=== PATIENT | female | born 1935 | race African-American/Black ===

== ENCOUNTER 2017-04-11 21:25 | Inpatient (IN) | payer MEDICARE, MEDICAID ==
[~2017-04-11] VITALS: Ht 162.6 cm; Wt 60.3 kg
--- NOTE | 2017-04-11 22:00 | Emergency Room Report ---
History of Present Illness General Chief Complaint: Hypertension Source: Patient, Medical Record Present Illness HPI Is an 81-year-old female who has a history dementia. [facility]. Present with chief complaint of high blood pressure. It was systolic in the [facility] the jail. She was sent here because she also had a history of hernia. Patient denies any symptoms. History is limited because of her dementia. I got further history from her niece who came by the but later. Her knee said that on Wednesday patient has no complaint. Today she was complaining abdominal pain with vomiting. She noticed that the inguinal hernia was much bigger and hard. Allergies: Coded Allergies: No Known Allergies (Unverified , 04/11/17) Patient History Past Medical History: see triage record, old chart reviewed, HTN Past Surgical History: other Pertinent Family History: none Social History: Denies: drug use Now: No Immunizations: other Reviewed Nursing Documentation: PMH: Agreed, PSxH: Agreed Nursing Documentation-PMH Past Medical History: No History, Except For Hx Diabetes: Yes History Of Psychiatric Problem: Yes - dementia, alzheimers, anxiety, insomnia Hx Cerebrovascular Accident: Yes Review of Systems Eye: Denies: eye pain, blurred vision ENT: Denies: ear pain, nose congestion, throat swelling Respiratory: Denies: cough, shortness of breath Cardiovascular: Denies: chest pain, palpitations Gastrointestinal: Denies: abdominal pain, diarrhea, nausea, vomiting Musculoskeletal: Denies: back pain, joint pain Skin: Denies: rash Neurological: Denies: headache, numbness Endocrine: Denies: increased thirst, increased urine Hematologic/Lymphatic: Denies: easy bruising All Other Systems: negative except mentioned in HPI Physical Exam Vital Signs Date Time Temp Pulse Resp B/P (MAP) Pulse Ox O2 Delivery O2 Flow Rate FiO2 04/11/17 21:23 120 17 182/91 98 Room Air vitals with high blood pressure and tachycardia Sp02 EP Interpretation: reviewed, normal General Appearance: well appearing, no apparent distress, alert Head: normocephalic, atraumatic Eyes: bilateral eye PERRL, bilateral eye EOMI ENT: hearing grossly normal, normal pharynx Neck: full range of motion, supple, no meningismus Respiratory: chest non-tender, lungs clear, normal breath sounds Cardiovascular #1: regular rate, rhythm, no murmur Gastrointestinal: normal bowel sounds, no mass, no organomegaly, no bruit, non- distended, tenderness - diffuse tenderness. A large left internal hernia Musculoskeletal: back normal, gait/station normal, normal range of motion Psychiatric: mood/affect normal Skin: warm/dry Procedures Critical Care Time Critical Care Time Critical care is mandated in this patient who presented with small bowel obstruction secondary to incarcerated/strangulated inguinal hernia . Patient require my urgent intervention to attenuate the risks of metabolic collapse which may lead to cardiovascular collapse and . Critical care time is 35 minutes excluding any reportable procedure. Critical care time included evaluation, multiple reevaluation, looking at old charts, interpreting laboratory and diagnostic data, discussing case with patient and family and consultants, and charting. Additional Procedure Procedure Narrative Procedure: Manual reduction of incarcerated left inguinal hernia. Indication: Incarcerated inguinal hernia Description: With pressure over the hernia, I was able to reduce it without difficulty. Patient tolerated procedure without a problem. Medical Decision Making Diagnostic Impression: Primary Impression: SBO (small bowel obstruction) Additional Impressions: Inguinal hernia of left side with obstruction Leukocytosis Qualified Codes: D72.829 - Elevated white blood cell count, unspecified Dehydration Hypertension Qualified Codes: I10 - Essential (primary) hypertension ER Course Patient presents with abdominal pain secondary to small bowel she should come incarcerated hernia. Her white count is elevated and is worse him for possible strangulation. She felt much better now. Hernia reduced. Because of the white count and obstruction, will admit. I would not put an NG tube in this patient because her dementia. She is not cooperating. She would pull out the NG tube. The obstruction was from the incarcerated hernia. I was able to reduce the hernia. I contacted , surgeon. He agreed with the treatment plan. Will admit to Dr. Arias. Lab Results Impression labs with leukocytosis EKG Diagnostic Results EKG Time: 23:44 Rate: tachycardiac Rhythm: NSR, other - Left axis deviation Rhythm Strip Diag. Results Rhythm Strip Time: 23:44 EP Interpretation: yes Rate: 110 Rhythm: NSR, no PVC's CT/MRI/US Diagnostic Results CT/MRI/US Diagnostic Results : Imaging Test Ordered: CT abd and pelvis Impression Read by radiologist. CT ABDOMEN & PELVIS: SBO due to small incarcerated left inguinal hernia. No pneumatosis or free air. Mesenteric edema in the left lower abdomen, cannot exclude enteritis or early strangulation. Rectal fecal impaction. Colonic diverticulosis, no definite diverticulitis. Mild diffuse colonic thickening which may be underdistention versus colitis. No appendicitis. No hydronephrosis. Distended bladder. Last Vital Signs Date Time Temp Pulse Resp B/P (MAP) Pulse Ox O2 Delivery O2 Flow Rate FiO2 04/11/17 21:23 120 17 182/91 98 Room Air Status: improved Disposition: ADMITTED INPATIENT Condition: Serious NABOR PENNY M.D. Apr 11, 2017 22:00
[2017-04-11 22:16] VITALS: BP 163/97
[2017-04-11 22:22] LABS: MEAN CORPUSCULAR HEMOGLOBIN 28.8 PG (27.0-31.0); MEAN CORPUSCULAR HGB CONC 34.2 G/DL (32.0-36.0); MEAN CORPUSCULAR VOLUME 84 FL (80-99); MEAN PLATELET VOLUME 7.3 FL (6.5-10.1); PLATELET COUNT 166 K/UL (150-450); RED CELL DISTRIBUTION WIDTH 14.4 % (11.6-14.8)
[2017-04-11 22:26] LABS: WHITE BLOOD COUNT 28.6 K/UL (4.8-10.8)
[2017-04-11] MEDS ORDERED: LORazepam Inj 2mg/ml 1ml ONE (22:42)
[2017-04-11] MEDS ORDERED: LORazepam Inj 2mg/ml 1ml IV ONE (22:45)
[2017-04-11 22:59] LABS: APPEARANCE,URINE CLEAR; KETONES,URINE 2+ (NEGATIVE); LEUKOCYTE ESTERASE ,URINE NEGATIVE (NEGATIVE); NITRITE,URINE NEGATIVE (NEGATIVE); PH,URINE 5 (4.5-8.0); PROTEIN,URINE NEGATIVE (NEGATIVE); UROBILINOGEN,URINE NORMAL MG/DL (0.0-1.0)
[2017-04-11 23:04] LABS: BAND NEUTROPHILS % (MANUAL) 3 % (0-8); LYMPHOCYTES % (MANUAL) 2 % (20-45); NEUTROPHILS % (MANUAL) 95 % (45-75); TOTAL CELLS COUNTED 100
[2017-04-11 23:05] LABS: ANISOCYTOSIS 1+; BASOPHILS % (MANUAL) 0 % (0-2); EOSINOPHILS % (MANUAL) 0 % (0-3); PLATELET ESTIMATE DECREASED; PLATELET MORPHOLOGY NORMAL; POLYCHROMASIA 1+
[2017-04-11] MEDS ORDERED: Morphine Sulfate 4mg/ml Inj ONE (23:14)
[2017-04-11] MEDS ORDERED: Piperacillin/Tazobactam 3.375 GM in NS 110 ML IVPB ONE (23:15)
[2017-04-11] MEDS ORDERED: Morphine Sulfate 4mg/ml Inj IVP ONE (23:15)
[2017-04-11] MEDS ORDERED: Zosyn 3.375gm inj ONE (23:20)
[2017-04-11 23:32] LABS: PROTHROMBIN TIME 9.8 SEC (9.30-11.50)
[2017-04-11] MEDS ORDERED: ASPIRIN81 MG ORAL (23:53)
[2017-04-11] MEDS ORDERED: METOPROLOL SUCC25 MG ORAL (23:54)
[2017-04-11] MEDS ORDERED: ACETAMINOPHEN325 M1 ORAL (23:54)
[2017-04-11] MEDS ORDERED: LISINOPRIL5 MG ORAL (23:54)
[2017-04-11] MEDS ORDERED: GLIPIZIDE5 MG ORAL (23:54)
[2017-04-11] MEDS ORDERED: COLACE100 MG ORAL (23:54)
[2017-04-12] VITALS (7 sets, daily range): BP systolic 129–170; BP diastolic 76–97
[2017-04-12] MEDS ORDERED: Acetaminophen 500mg (ES) tab ORAL ONE
[2017-04-12 00:11] LABS: ALANINE AMINOTRANSFERASE 9 U/L (3-33); ALBUMIN/GLOBULIN RATIO 1.3 (1.0-2.7); ANION GAP 18 (5-15); ASPARTATE AMINO TRANSFERASE 12 U/L (5-40); CALCIUM 9.1 mg/dL (8.6-10.2); CARBON DIOXIDE 22 mEQ/L (20-30); CHLORIDE 101 mEQ/L (98-107); CREATININE 1.5 mg/dL (0.5-0.9); HEMOLYSIS 5; LIPASE 50 U/L (< 60); POTASSIUM 4.7 mEQ/L (3.4-4.9); SODIUM 141 mEQ/L (135-145); TOTAL PROTEIN 6.9 g/dL (6.6-8.7)
[2017-04-12] MEDS ORDERED: Morphine Sulfate 2mg/ml Inj IVP PRN (02:45)
[2017-04-12] MEDS ORDERED: Zosyn 3.375gm inj ONE (06:03)
[2017-04-12] MEDS: NovoLOG Insulin Flexpen SUBQ SCH ×4 (06:30→21:30)
[2017-04-12] MEDS: Piperacillin/Tazobactam 3.375 GM in D5W 110 ML IVPB SCH ×3 (06:37→21:57)
--- NOTE | 2017-04-12 08:55 | Diagnostic Imaging Report ---
Indication: Abdominal pain Technique: Continuous helical transaxial imaging of the abdomen and pelvis was obtained from the lung bases to the pubic symphysis. No intravenous contrast was administered. Coronal 2-D reformats were also obtained. Total Dose length Product (DLP): [address] Dose Index Volume (CTDIvol): 17 mGy Comparison: none Findings: There is a fairly large hernia that appears incarcerated and left lower quadrant abdomen containing small bowel. This dilatation of afferent limb of the small bowel isn't eating with small bowel obstruction. Please correlate clinically. The proximal small bowel leading up to the hernia is mildly dilated. There is probably no involvement of the colon but this is not definite. There is no colonic dilatation seen. Moderate fecal retention noted within the colon especially in the right which is distended by about 10 cm. There is no free air or pneumatosis. There is a moderate degree of mesenteric edema in the left lower quadrant at the base of the hernia and within the hernia. The appendix is normal. Arterial vascular calcifications are present. There is artifact limiting evaluation of the upper abdomen. Diverticula noted throughout the colon. The uterus is noted. There is an umbilical hernia containing fat. Mild basilar atelectasis noted. Bones are osteopenic. Impression: Small bowel incarceration within the hernia in the left inguinal region associated with small bowel obstruction. Moderate inflammation noted. Please correlate clinically. Is atherosclerotic disease. Severe fecal retention within the rectum. Umbilical hernia noted containing fat. Diverticulosis of the colon Artifacts. [facility] has communicated the preliminary results to the Emergency Department. Their findings are largely concordant with this report. The CT scanner at [facility] is accredited by the [employer] and the scans are performed using dose optimization techniques as appropriate to a performed exam including Automatic Exposure control.
[2017-04-12] MEDS: Metoprolol 25mg tab ORAL SCH ×3 (09:27→21:57)
--- NOTE | 2017-04-12 11:13 | Consultation ---
History of Present Illness General Date patient seen: Apr 12, 2017 Chief Complaint: Hypertension Present Illness HPI 81F with dementia current senior living resident who was noted to have worsening abdominal pain, emesis, and left inguinal hernia. Hernia reduced in ED and since well. Cannot obtain history from patient given mental status but history obtained from EMR. currently comfortable in hospital bed without complaints. Allergies: Coded Allergies: No Known Allergies (Unverified , 04/11/17) Medication History Scheduled Aspirin* (Aspirin*), 81 MG ORAL DAILY, (Reported) Docusate Sodium* (Colace*), 100 MG ORAL TWICE A DAY, (Reported) Glipizide* (Glipizide*), 5 MG ORAL BIDAC, (Reported) Lisinopril (Lisinopril*), 5 MG ORAL DAILY, (Reported) Metoprolol Succinate* (Metoprolol Succinate*), 25 MG ORAL DAILY, (Reported) Scheduled PRN Acetaminophen* (Acetaminophen 325MG Tablet*), 325 MG ORAL Q4H PRN for For Pain, (Reported) Patient History Limited by: medical condition Healthcare decision maker Resuscitation status Full Code Advanced Directive on File No Past Medical/Surgical History Past Medical/Surgical History: (1) Leukocytosis (2) Hypertension (3) Inguinal hernia of left side with obstruction (4) Dehydration (5) SBO (small bowel obstruction) (6) Incarcerated hernia Review of Systems ROS Narrative cannot obtain given patients medical condition Physical Exam General Appearance: no apparent distress Lines, tubes and drains: peripheral HEENT: PERRL Neck: normal inspection Respiratory/Chest: normal breath sounds, no respiratory distress, no accessory muscle use Cardiovascular/Chest: normal peripheral pulses, regularly irregular Abdomen: normal bowel sounds, non tender, soft, other - small umbilical hernia appreciated and reducible. no inguinal hernia noted at this time. Extremities: normal inspection Neurologic: responsive Last 24 Hour Vital Signs Date Time Temp Pulse Resp B/P (MAP) Pulse Ox O2 Delivery O2 Flow Rate FiO2 04/12/17 09:27 111 159/79 04/12/17 09:27 111 159/79 04/12/17 08:00 97.3 114 18 166/85 99 Room Air 04/12/17 04:00 121 04/12/17 02:17 98.1 133 20 170/94 95 Room Air 04/12/17 02:08 132 04/12/17 02:05 97.2 124 18 154/93 98 Room Air 04/12/17 01:09 97.2 124 18 154/93 98 Room Air 04/12/17 00:16 97.2 129 17 142/97 100 Room Air 04/11/17 23:36 98.4 04/11/17 22:16 98.4 120 17 163/97 98 Room Air 04/11/17 22:16 120 17 Room Air 04/11/17 21:23 120 17 182/91 98 Room Air Intake and Output 04/12/17 04/13/17 19:00 07:00 Intake Total 100 ml Balance 100 ml IV Total 100 ml Laboratory Tests Test 04/11/17 22:10 04/11/17 22:50 04/11/17 23:00 04/11/17 23:50 White Blood Count 28.6 K/UL (4.8-10.8) *H Red Blood Count 5.10 M/UL (4.20-5.40) Hemoglobin 14.7 G/DL (12.0-16.0) Hematocrit 43.0 % (37.0-47.0) Mean Corpuscular Volume 84 FL (80-99) Mean Corpuscular Hemoglobin 28.8 PG (27.0-31.0) Mean Corpuscular Hemoglobin Concent 34.2 G/DL (32.0-36.0) Red Cell Distribution Width 14.4 % (11.6-14.8) Platelet Count 166 K/UL (150-450) Mean Platelet Volume 7.3 FL (6.5-10.1) Neutrophils (%) (Auto) % (45.0-75.0) Lymphocytes (%) (Auto) % (20.0-45.0) Monocytes (%) (Auto) % (1.0-10.0) Eosinophils (%) (Auto) % (0.0-3.0) Basophils (%) (Auto) % (0.0-2.0) Differential Total Cells Counted 100 Neutrophils % (Manual) 95 % (45-75) H Lymphocytes % (Manual) 2 % (20-45) L Monocytes % (Manual) 0 % (1-10) L Eosinophils % (Manual) 0 % (0-3) Basophils % (Manual) 0 % (0-2) Band Neutrophils 3 % (0-8) Platelet Estimate Decreased L Platelet Morphology Normal Polychromasia 1+ Anisocytosis 1+ Urine Color Pale yellow Urine Appearance Clear Urine pH 5 (4.5-8.0) Urine Specific Hub[place] 1.010 (1.005-1.035) Urine Protein Negative (NEGATIVE) Urine Glucose (UA) Negative (NEGATIVE) Urine Ketones 2+ (NEGATIVE) H Urine Occult Blood Negative (NEGATIVE) Urine Nitrite Negative (NEGATIVE) Urine Bilirubin Negative (NEGATIVE) Urine Urobilinogen Normal MG/DL (0.0-1.0) Urine Leukocyte Esterase Negative (NEGATIVE) Prothrombin Time 9.8 SEC (9.30-11.50) Prothromb Time International Ratio 1.0 (0.9-1.1) Activated Partial Thromboplast Time 24 SEC (23-33) Sodium Level 141 mEQ/L (135-145) Potassium Level 4.7 mEQ/L (3.4-4.9) Chloride Level 101 mEQ/L (98-107) Carbon Dioxide Level 22 mEQ/L (20-30) Anion Gap 18 (5-15) H Blood Urea Nitrogen 32 mg/dL (7-23) H Creatinine 1.5 mg/dL (0.5-0.9) H Estimat Glomerular Filtration Rate mL/min (>60) Glucose Level 265 mg/dL (74-106) H Calcium Level 9.1 mg/dL (8.6-10.2) Total Bilirubin 0.3 mg/dL (0.0-1.2) Aspartate Amino Transf (AST/SGOT) 12 U/L (5-40) Alanine Aminotransferase (ALT/SGPT) 9 U/L (3-33) Alkaline Phosphatase 65 U/L (35-104) Total Protein 6.9 g/dL (6.6-8.7) Albumin 3.9 g/dL (3.5-5.2) Globulin 3.0 g/dL Albumin/Globulin Ratio 1.3 (1.0-2.7) Lipase 50 U/L (< 60) Height (Feet): 5 Height (Inches): 4.00 Weight (Pounds): 133 Medications Current Medications Medications (Trade) Dose Ordered Sig/Lan Route PRN Reason Start Time Stop Time Status Last Admin Dose Admin Amlodipine Besylate (Norvasc) 5 mg DAILY ORAL 04/12/17 09:00 05/12/17 08:59 04/12/17 09:27 Dextrose (Dextrose 50%) STAT PRN IV Hypoglycemia 04/12/17 02:45 05/12/17 02:44 Heparin Sodium (Porcine) (Heparin 5000 units/ml) 5,000 units EVERY 12 HOURS SUBQ 04/12/17 21:00 05/12/17 20:59 Insulin Aspart (NovoLOG) BEFORE MEALS AND HS SUBQ 04/12/17 06:30 05/12/17 06:29 Metoprolol Tartrate (Lopressor) 25 mg Q12HR ORAL 04/12/17 09:00 05/12/17 08:59 04/12/17 09:27 Morphine Sulfate (Morphine Sulfate) 2 mg Q4H PRN IVP For Pain 04/12/17 02:45 04/19/17 02:44 Piperacillin Sod/ Tazobactam Sod 3.375 gm/Dextrose 110 ml @ 27.5 mls/hr EVERY 8 HOURS IVPB 04/12/17 06:00 04/17/17 05:59 04/12/17 06:37 Sodium Chloride 1,000 ml @ 100 mls/hr Q10H IV 04/12/17 02:45 05/12/17 02:44 04/12/17 03:30 Assessment/Plan Problem List: (1) Inguinal hernia of left side with obstruction Assessment & Plan: 81F with left inguinal hernia which was reduced. doing well currently. leukocytosis and labs reviewed. no acute surgical intervention planned given hernia reduced and obstruction resolved. keep NPO with IV fluids for now will need to monitor exam and labs for 24hrs to ensure bowel viability since reduction ICD Codes: K40.30 - Unilateral inguinal hernia, with obstruction, without gangrene, not specified as recurrent SNOMED: 873992591, 835280790 Status: stable Lico Hammer Apr 12, 2017 11:13
--- NOTE | 2017-04-12 12:25 | Diagnostic Imaging Report ---
Indication: Abdominal pain Comparison: None Single view of the abdomen obtained Findings: Bowel gas pattern is nonspecific. No mass, ectopic calcifications, or abnormal gas collections are identified. The bones are unremarkable. There is moderate fecal retention in the distended rectal vault. Lau catheter is noted. Impression: Rectal distention due to feces Lau catheter
[2017-04-12 13:30] LABS: MEAN CORPUSCULAR HEMOGLOBIN 27.1 PG (27.0-31.0); MEAN CORPUSCULAR HGB CONC 31.7 G/DL (32.0-36.0); MEAN CORPUSCULAR VOLUME 85 FL (80-99); MEAN PLATELET VOLUME 8.9 FL (6.5-10.1); PLATELET COUNT 123 K/UL (150-450); RED BLOOD COUNT 5.05 M/UL (4.20-5.40); WHITE BLOOD COUNT 16.8 K/UL (4.8-10.8)
[2017-04-12 13:47] LABS: ANISOCYTOSIS 1+; BAND NEUTROPHILS % (MANUAL) 2 % (0-8); BASOPHILS % (MANUAL) 0 % (0-2); EOSINOPHILS % (MANUAL) 0 % (0-3); LYMPHOCYTES % (MANUAL) 8 % (20-45); NEUTROPHILS % (MANUAL) 85 % (45-75); PLATELET CLUMPS 1+; PLATELET ESTIMATE ADEQUATE; TOTAL CELLS COUNTED 100
[2017-04-12 13:49] LABS: ALANINE AMINOTRANSFERASE 8 U/L (3-33); ALBUMIN/GLOBULIN RATIO 1.2 (1.0-2.7); ANION GAP 14 (5-15); ASPARTATE AMINO TRANSFERASE 14 U/L (5-40); CALCIUM 8.6 mg/dL (8.6-10.2); CARBON DIOXIDE 20 mEQ/L (20-30); CHLORIDE 105 mEQ/L (98-107); CREATININE 1.4 mg/dL (0.5-0.9); HEMOLYSIS 27; POTASSIUM 5.3 mEQ/L (3.4-4.9); SODIUM 139 mEQ/L (135-145); TOTAL PROTEIN 6.6 g/dL (6.6-8.7)
[2017-04-12] MEDS: Sodium Polystyrene Sulfonate 15gm Powder ORAL ONE ×3 (15:12→21:30)
--- NOTE | 2017-04-12 19:40 | Cardiology Report ---
APPROVED REPORT EKG Measurement Heart [id number] ME [id number] [id number] Sinus tachycardia Left axis deviation Low voltage QRS Inferior infarct, age undetermined Cannot rule out Anteroseptal infarct, age undetermined Abnormal ECG
[2017-04-12] MEDS: Heparin 5000 units/ml inj SUBQ SCH ×2 (21:30→21:59)
[2017-04-13] VITALS (7 sets, daily range): BP systolic 133–161; BP diastolic 65–80
--- NOTE | 2017-04-13 00:45 | History and Physical Report ---
DATE OF ADMISSION: 04/12/2017 CHIEF COMPLAINT: Small bowel obstruction secondary to incarcerated left inguinal hernia. HISTORY OF PRESENT ILLNESS: The patient is an 81-year-old female. She has a prior history of hypertensive heart disease, stroke, diabetes, dementia, and anemia who presented with complaints of abdominal pain. She was noted to have a small-bowel obstruction on CAT scan secondary to a left inguinal hernia. This was reduced by the ER. Immediately afterwards, her symptoms improved. She is now admitted for further evaluation and care. She is confused at baseline, so unable to provide any history. PAST MEDICAL HISTORY: As above. PAST SURGICAL HISTORY: Unknown. CURRENT MEDICATIONS: Reconciled and reviewed. ALLERGIES: None. SOCIAL HISTORY: There is no known history of tobacco, ethanol, or drugs. FAMILY HISTORY: Unknown. REVIEW OF SYSTEMS: From the patient is unobtainable as the patient is minimally verbal. PHYSICAL EXAMINATION: VITAL SIGNS: Temperature 98 degrees, pulse 133, respirations 20, and blood pressure 170/94. GENERAL: The patient is a well-developed female, in no apparent distress. She is arousable and follows some simple commands. NECK: Supple. There is no jugular venous distention. HEART: Regular rate and rhythm. LUNGS: Clear. ABDOMEN: Soft, nontender, and nondistended. There is no inguinal hernia noted. EXTREMITIES: Without clubbing or cyanosis. LABORATORY DATA: Sodium 141, potassium 4.7, and creatinine was 1.5. White count was 28,000 and hemoglobin 14. Urine was clear. ASSESSMENT: This is a pleasant female, admitted with complaints of sepsis secondary to small bowel obstruction secondary to incarcerated hernia that has now been reduced. The patient's symptoms have immediately improved. PLAN: 1. Surgical evaluation. 2. IV hydration. 3. Repeat KUB. 4. Consider starting clears. 5. Broad-spectrum IV antibiotic therapy. 6. Resume antihypertensive regimen. 7. We will resume oral diabetic regimen once the patient is back eating. Mak Arias M.D. DR: KIEL JOB#: [id number] CC:
[2017-04-13] MEDS: Piperacillin/Tazobactam 3.375 GM in D5W 110 ML IVPB SCH ×3 (06:11→21:32)
[2017-04-13] MEDS: NovoLOG Insulin Flexpen SUBQ SCH ×4 (06:22→21:29)
[2017-04-13 06:37] LABS: BASOPHILS % (AUTO) 0.3 % (0.0-2.0); EOSINOPHILS % (AUTO) 0.5 % (0.0-3.0); LYMPHOCYTES % (AUTO) 13.9 % (20.0-45.0); MEAN CORPUSCULAR HEMOGLOBIN 28.4 PG (27.0-31.0); MEAN CORPUSCULAR HGB CONC 33.2 G/DL (32.0-36.0); MEAN CORPUSCULAR VOLUME 86 FL (80-99); MEAN PLATELET VOLUME 7.2 FL (6.5-10.1); MONOCYTES % (AUTO) 11.6 % (1.0-10.0); NEUTROPHILS % (AUTO) 73.6 % (45.0-75.0); PLATELET COUNT 135 K/UL (150-450); RED BLOOD COUNT 4.03 M/UL (4.20-5.40); RED CELL DISTRIBUTION WIDTH 13.9 % (11.6-14.8); WHITE BLOOD COUNT 9.8 K/UL (4.8-10.8)
--- NOTE | 2017-04-13 07:12 | General Progress Note ---
Assessment/Plan Problem List: (1) Leukocytosis ICD Codes: D72.829 - Elevated white blood cell count, unspecified SNOMED: 815061119, 784294933 Qualifiers: Qualified Codes: D72.829 - Elevated white blood cell count, unspecified (2) Hypertension ICD Codes: I10 - Essential (primary) hypertension SNOMED: 37297012, 399030506 Qualifiers: Qualified Codes: I10 - Essential (primary) hypertension (3) Inguinal hernia of left side with obstruction ICD Codes: K40.30 - Unilateral inguinal hernia, with obstruction, without gangrene, not specified as recurrent SNOMED: 042329337, 337172789 (4) SBO (small bowel obstruction) ICD Codes: K56.69 - Other intestinal obstruction SNOMED: 231019057, 925986595 (5) Dehydration ICD Codes: E86.0 - Dehydration SNOMED: 40218696, 359832689 Status: stable Assessment/Plan clears iv abx ivf surgery follow up. Subjective ROS Limited/Unobtainable: No Constitutional: Reports: malaise, weakness HEENT: Reports: no symptoms Cardiovascular: Reports: no symptoms Respiratory: Reports: no symptoms Gastrointestinal/Abdominal: Reports: no symptoms Genitourinary: Reports: no symptoms Neurologic/Psychiatric: Reports: pre-existing deficit Endocrine: Reports: no symptoms Hematologic/Lymphatic: Reports: no symptoms Allergies: Coded Allergies: No Known Allergies (Unverified , 04/11/17) Subjective no events. no pain. +bowel movement yesterday- large. kub with no sbo. Objective Last 24 Hour Vital Signs Date Time Temp Pulse Resp B/P (MAP) Pulse Ox O2 Delivery O2 Flow Rate FiO2 04/13/17 04:00 100 04/13/17 04:00 96.7 92 20 154/72 96 Room Air 04/13/17 00:26 97.9 95 20 161/80 98 Room Air 04/13/17 00:00 83 04/12/17 21:57 86 132/75 04/12/17 20:27 97.3 89 20 129/76 98 Nasal Cannula 2.0 04/12/17 20:00 82 04/12/17 16:04 96.6 90 18 158/85 99 Nasal Cannula 2.0 04/12/17 16:00 82 04/12/17 12:00 97.7 105 20 159/86 100 Room Air 04/12/17 12:00 104 04/12/17 09:27 111 159/79 04/12/17 09:27 111 159/79 04/12/17 08:00 97.3 114 18 166/85 99 Room Air Laboratory Tests 04/12/17 12:55: White Blood Count 16.8H, Red Blood Count 5.05, Hemoglobin 13.7, Hematocrit 43.1 , Mean Corpuscular Volume 85, Mean Corpuscular Hemoglobin 27.1, Mean Corpuscular Hemoglobin Concent 31.7L, Red Cell Distribution Width 14.0, Platelet Count 123L, Mean Platelet Volume 8.9, Neutrophils (%) (Auto) , Lymphocytes (%) (Auto) , Monocytes (%) (Auto) , Eosinophils (%) (Auto) , Basophils (%) (Auto) , Differential Total Cells Counted 100, Neutrophils % ( Manual) 85H, Lymphocytes % (Manual) 8L, Monocytes % (Manual) 5, Eosinophils % ( Manual) 0, Basophils % (Manual) 0, Band Neutrophils 2, Platelet Estimate Adequate, Platelet Morphology , Clumped Platelets 1+, Anisocytosis 1+, Sodium Level 139, Potassium Level 5.3H, Chloride Level 105, Carbon Dioxide Level 20, Anion Gap 14, Blood Urea Nitrogen 24H, Creatinine 1.4H, Estimat Glomerular Filtration Rate , Glucose Level 172H, Calcium Level 8.6, Total Bilirubin 0.6, Aspartate Amino Transf (AST/SGOT) 14, Alanine Aminotransferase (ALT/SGPT) 8, Alkaline Phosphatase 63, Total Protein 6.6, Albumin 3.7, Globulin 2.9, Albumin/ Globulin Ratio 1.2, Thyroid Stimulating Hormone (TSH) 1.160 04/13/17 06:00: White Blood Count 9.8, Red Blood Count 4.03L, Hemoglobin 11.4L, Hematocrit 34.5L , Mean Corpuscular Volume 86, Mean Corpuscular Hemoglobin 28.4, Mean Corpuscular Hemoglobin Concent 33.2, Red Cell Distribution Width 13.9, Platelet Count 135L, Mean Platelet Volume 7.2, Neutrophils (%) (Auto) 73.6, Lymphocytes ( %) (Auto) 13.9L, Monocytes (%) (Auto) 11.6H, Eosinophils (%) (Auto) 0.5, Basophils (%) (Auto) 0.3, Sodium Level [Pending], Potassium Level [Pending], Chloride Level [Pending], Carbon Dioxide Level [Pending], Blood Urea Nitrogen [ Pending], Creatinine [Pending], Estimat Glomerular Filtration Rate [Pending], Glucose Level [Pending], Calcium Level [Pending], Total Bilirubin [Pending], Aspartate Amino Transf (AST/SGOT) [Pending], Alanine Aminotransferase (ALT/SGPT ) [Pending], Alkaline Phosphatase [Pending], Total Protein [Pending], Albumin [ Pending], Globulin [Pending] Height (Feet): 5 Height (Inches): 4.00 Weight (Pounds): 133 General Appearance: WD/WN, confused Neck: supple Cardiovascular: normal peripheral pulses, normal rate, regular rhythm Respiratory/Chest: chest wall non-tender, lungs clear, normal breath sounds, no respiratory distress Abdomen: normal bowel sounds, non tender, soft, no organomegaly Edema: no edema noted Arm (L), no edema noted Arm (R), no edema noted Leg (L), no edema noted Leg (R), no edema noted Pedal (L), no edema noted Pedal (R), no edema noted Generalized Neurologic: disoriented EUSEBIA SCHULTZ Apr 13, 2017 07:12
[2017-04-13 07:15] LABS: ALANINE AMINOTRANSFERASE 8 U/L (3-33); ALBUMIN/GLOBULIN RATIO 1.3 (1.0-2.7); ANION GAP 11 (5-15); ASPARTATE AMINO TRANSFERASE 13 U/L (5-40); CALCIUM 8.7 mg/dL (8.6-10.2); CARBON DIOXIDE 25 mEQ/L (20-30); CHLORIDE 107 mEQ/L (98-107); CREATININE 1.3 mg/dL (0.5-0.9); HEMOLYSIS 4; POTASSIUM 4.1 mEQ/L (3.4-4.9); SODIUM 143 mEQ/L (135-145); TOTAL PROTEIN 6.1 g/dL (6.6-8.7)
[2017-04-13] MEDS: Heparin 5000 units/ml inj SUBQ SCH ×2 (09:00→21:28)
[2017-04-13] MEDS: Metoprolol 25mg tab ORAL SCH ×2 (09:54→21:25)
--- NOTE | 2017-04-13 11:10 | General Progress Note ---
Progress Note Progress Note Surgery: patient seen and examined at bedside. no acute events. much improved today. awake and responsive. no n/v/f/c. labs improved. no pain. exam benign. no hernia on exam today. incarcerated left inguinal hernia causing obstruction which was easily reduced. doing well since. - diet as tolerated - no acute surgical intervention - will discuss elective hernia repair with patient. follow up with me as an outpatient - okay to d/c from surgical standpoint Lico Hammer Apr 13, 2017 11:10
[2017-04-14 04:45] VITALS: BP 144/65
[2017-04-14] MEDS: LORazepam Inj 2mg/ml 1ml IV PRN ×2 (06:09→10:57)
[2017-04-14] MEDS: Piperacillin/Tazobactam 3.375 GM in D5W 110 ML IVPB SCH ×3 (06:10→22:49)
[2017-04-14] MEDS: NovoLOG Insulin Flexpen SUBQ SCH ×4 (06:32→20:56)
[2017-04-14 08:00] VITALS: BP 147/69
[2017-04-14] MEDS: Metoprolol 25mg tab ORAL SCH ×2 (09:56→20:50)
[2017-04-14] MEDS: Heparin 5000 units/ml inj SUBQ SCH ×2 (10:00→20:55)
--- NOTE | 2017-04-14 10:15 | General Progress Note ---
Progress Note Progress Note Surgery: patient seen and examined at bedside. no acute events. awake and responsive. no n/v/f/c. no pain. exam benign. no hernia on exam. tolerating diet - no acute surgical intervention - will discuss elective hernia repair with patient. follow up with me as an outpatient - okay to d/c from surgical standpoint Lico Hammer Apr 14, 2017 10:15
[2017-04-14 12:00] VITALS: BP 149/84
[2017-04-14] MEDS ORDERED: NS 275ml ONE (14:03)
[2017-04-14] MEDS ORDERED: Tubing IV Secondary IV ONE (14:04)
[2017-04-14 15:58] VITALS: BP 144/65
[2017-04-14 20:00] VITALS: BP 151/76
[2017-04-15] VITALS: BP 140/73
[2017-04-15 04:00] VITALS: BP 146/70
[2017-04-15] MEDS: Piperacillin/Tazobactam 3.375 GM in D5W 110 ML IVPB SCH (06:00)
[2017-04-15] MEDS: NovoLOG Insulin Flexpen SUBQ SCH ×2 (06:30→12:08)
[2017-04-15 07:52] VITALS: BP 156/80
[2017-04-15] MEDS ORDERED: METRONIDAZOLE500 MG ORAL (08:08)
[2017-04-15] MEDS ORDERED: LOSARTAN POTASS25 M1 PO (08:08)
[2017-04-15] MEDS ORDERED: LEVAQUIN500 MG ORAL (08:08)
[2017-04-15] MEDS: Metoprolol 25mg tab ORAL SCH (09:08)
[2017-04-15] MEDS: Heparin 5000 units/ml inj SUBQ SCH (09:10)
[2017-04-15 11:55] VITALS: BP 136/66
--- NOTE | 2017-04-16 15:11 | Discharge Summary ---
Discharge Summary Hospital Course Date of Admission Apr 11, 2017 at 23:54 Date of Discharge Apr 15, 2017 at 13:30 Admitting Diagnosis small bowel obstruction, Incarcerated left inguina HPI Renita Aguilar is a 81 year old female who was admitted on Apr 11, 2017 at 23: 54 for Small Bowell Obstruction /Incarcerated Left Hospital Course [id number] Discharge Discharge Disposition Patient was discharged to snf Discharge Diagnoses: Nichole Jacobsen NP Apr 16, 2017 15:11
--- NOTE | 2017-04-17 02:15 | Discharge Summary 2 SIG ---
DATE OF ADMISSION: 04/11/2017 DATE OF DISCHARGE: 04/15/2017 ENTRY MANAGER: Lico Hammer M.D. BRIEF HOSPITAL COURSE: The patient is an 81-year-old female with history of hypertensive heart disease, stroke, diabetes, dementia, and anemia, presented to ED with complaints of abdominal pain. On evaluation, a CAT scan done, showed small bowel obstruction secondary to left inguinal hernia. Manual reduction of incarcerated inguinal hernia was done. WBC was elevated. Surgical evaluation was done. She was kept on NPO with IV fluids and placed on bowel rest. She was then eventually started on clear liquids. There has been no nausea or vomiting and no acute surgical intervention was needed. Discussed elective hernia repair. She was tolerating diet and was eventually discharged to SNF. FINAL DIAGNOSES: 1. Small bowel obstruction secondary to incarcerated hernia, status post manual reduction. 2. Hypertension. 3. Dehydration. 4. Leukocytosis. DISPOSITION: The patient was discharged to SNF. DISCHARGE MEDICATIONS: Refer to med list. FOLLOWUP: Follow up with Dr. Hammer for elective hernia repair. ACTIVITY: No heavy lifting. Mak Arias M.D. I have been assigned to dictate discharge summary on this account and I was not involved in the patient's management. Nichole Jacobsen N.P. DR: VARUN JOB#: [id number] CC: ADELAIDA
== END 2017-04-15 13:30 | DRG 395 ==
LOC: EDBD 21:25 → EMR 21:45 → 2E 23:54 → EDBEDREQ 04-12 01:24 → 2E 04-14 05:33
DX: K40.30 Unilateral inguinal hernia, with obstruction, without gangrene, not specified as recurrent (principal); I11.9 Hypertensive heart disease without heart failure; F03.90 Unspecified dementia, unspecified severity, without behavioral disturbance, psychotic disturbance, mood disturbance, and anxiety; E86.0 Dehydration; E11.9 Type 2 diabetes mellitus without complications; D64.9 Anemia, unspecified; D72.829 Elevated white blood cell count, unspecified; Z86.73 Personal history of transient ischemic attack (TIA), and cerebral infarction without residual deficits; Z79.84 Long term (current) use of oral hypoglycemic drugs
CPT/HCPCS: 36415; 51702; 74000; 74176; 80053; 81003; 82962; 83690; 84443; 85007; 85025; 85610; 85730; 87081; 93005; J1815; J2405